=== PATIENT | male | born 1970 | race Caucasian/White ===

== ENCOUNTER 2016-06-15 23:02 | Emergency (ER) | payer MEDICARE ==
[2016-06-16 01:13] LABS: HEMOGLOBIN 12.1 gm/dl (14.0-17.5); RED BLOOD COUNT 3.67 M/UL (4.20-5.50); WHITE BLOOD COUNT 10.1 K/UL (4.5-11.0)
[2016-06-16 01:40] LABS: BUN/CREATININE RATIO 13 (0-10)
== END 2016-06-16 04:45 | disposition home or self-care (01) ==
LOC: ER1 23:02
PROVIDERS: Family Medicine
DX: Z04.3 Encounter for examination and observation following other accident (principal); E66.01 Morbid (severe) obesity due to excess calories; R06.00 Dyspnea, unspecified; R68.83 Chills (without fever); R21 Rash and other nonspecific skin eruption; F17.200 Nicotine dependence, unspecified, uncomplicated; W19.XXXA Unspecified fall, initial encounter; Y92.009 Unspecified place in unspecified non-institutional (private) residence as the place of occurrence of the external cause
CPT/HCPCS: 36415; 80053; 82550; 82553; 83874; 84484; 85025; 93005; 94640; 94664; 99284